=== PATIENT | male | born 1985 | race Caucasian/White ===

== ENCOUNTER 2020-11-04 09:53 | Emergency (ER) | payer MEDICAID ==
[~2020-11-04] VITALS: Ht 177.8 cm; Wt 86.0 kg
[2020-11-04] MEDS ORDERED: LIDOCAINE HCL 1% 20ML VIAL (Pyxis) INJ INFIL ONE (10:15)
[2020-11-04] MEDS ORDERED: TETANUS, DIPHTHERIA, PERTUSSIS VAC/PF 0.5ML (>7YR OLD) IM ONE (10:15)
[2020-11-04] MEDS ORDERED: CEFTRIAXONE SODIUM 1 G/VIAL IM ONE (10:15)
[2020-11-04] MEDS ORDERED: CEPH500T MT (11:06)
[2020-11-04] MEDS ORDERED: IBUP-2030 MT (11:06)
[2020-11-04] MEDS ORDERED: DOXY100T2 MT (11:06)
[2020-11-04 11:46] VITALS: BP 123/81
== END 2020-11-04 11:47 | disposition home or self-care (01) ==
LOC: ER 09:53
DX: T63.511A Toxic effect of contact with stingray, accidental (unintentional), initial encounter (principal); L03.115 Cellulitis of right lower limb; Y93.89 Activity, other specified; Y92.832 Beach as the place of occurrence of the external cause
CPT/HCPCS: 73630; 90471; 90715; 96372; 99284; J0696; J3490

== ENCOUNTER 2022-07-07 12:47 | Emergency (ER) | payer MEDICAID ==
[~2022-07-07] VITALS: Ht 177.8 cm; Wt 88.0 kg
[~2022-07-07 12:47] MED LIST: CEPH500T MT; DOXY100T2 MT; IBUP-2030 MT
[2022-07-07 14:05] LABS: BASOPHILS % 0.1 % (0.0-2.0); EOSINOPHILS % 0.3 % (0.0-5.0); HEMATOCRIT. 43.7 % (42.0-52.0); HEMOGLOBIN. 15.4 g/dL (14.0-18.0); LYMPHOCYTES % 11.3 % (20.0-50.0); MEAN CORPUSCULAR HEMOGLOBIN 29.9 pg (28.0-32.0); MEAN PLATELET VOLUME 7.7 fl (7.4-10.4); MONOCYTES % 7.1 % (2.0-8.0); NEUTROPHILS % 81.2 % (40.0-76.0); PLATELET 298 x1000/uL (130-400); RED BLOOD CELL COUNT 5.14 mill/uL (4.7-6.1); RED CELL DISTRIBUTION WIDTH 13.5 % (11.6-14.6)
[2022-07-07 14:14] LABS: CHLORIDE 107 mEq/L (98-107)
[2022-07-07 14:21] LABS: ETHANOL BLOOD < 10 mg/dL
[2022-07-07] MEDS ORDERED: ONDANSETRON HCL 4MG/2ML INJ IV STA (14:36)
[2022-07-07] MEDS ORDERED: FAMOTIDINE 20MG/2ML VIAL IV STA (14:36)
[2022-07-07] MEDS ORDERED: SODIUM CHLORIDE 0.9% 1,000 ML IV ONE (14:45)
[2022-07-07] MEDS ORDERED: LOPERAMIDE HCL 2MG CAPSULE PO ONE (15:45)
[2022-07-07 15:57] LABS: CLARITY URINE CLEAR (CLEAR); COLOR URINE YELLOW (YELLOW); KETONES URINE NEGATIVE (NEGATIVE); LEUKOCYTE ESTERASE URINE NEGATIVE (NEGATIVE); NITRITE URINE NEGATIVE (NEGATIVE); OCCULT BLOOD URINE NEGATIVE (NEGATIVE); PH URINE 5.5 (4.5-8.0); PROTEIN URINE NEGATIVE (NEGATIVE); SPECIFIC GRAVITY URINE 1.012 (1.005-1.030); UROBILINOGEN URINE 0.2 E.U./dL (0.2-1.0)
[2022-07-07 17:06] VITALS: BP 109/71
[2022-07-07] MEDS ORDERED: ONDA4TAB11 PO (17:14)
[2022-07-07] MEDS ORDERED: LOPE2TAB24 MT (17:14)
== END 2022-07-07 18:03 | disposition home or self-care (01) ==
LOC: ER 12:47
DX: R10.13 Epigastric pain (principal); R11.0 Nausea; R19.7 Diarrhea, unspecified
CPT/HCPCS: 36415; 74176; 80053; 80320; 81003; 83690; 85025; 96374; 96375; 99285; J2405; J3490; J7030; Z7610; G0480

== ENCOUNTER 2024-04-25 14:19 | Emergency (ER) | payer MEDICAID ==
[~2024-04-25] VITALS: Ht 177.8 cm; Wt 86.1 kg
[~2024-04-25 14:19] MED LIST changes: +LOPE2TAB24 MT; +ONDA-239 PO
[2024-04-25 14:26] VITALS: O2SAT 98
[2024-04-25] MEDS: KETOROLAC 30MG/ML VIAL IM STA (18:50)
[2024-04-25 19:30] LABS: INFLUENZA TYPE A Presumptive Negative (Pres. Neg.)
[2024-04-25 19:31] LABS: INFLUENZA TYPE B Presumptive Negative (Pres. Neg.)
[2024-04-25] MEDS: CEFTRIAXONE SODIUM 1G VIAL IM ONE (19:51)
[2024-04-25] MEDS: LIDOCAINE HCL/PF 1% 10 MG/ML 5ML VIAL INFIL ONE (19:51)
[2024-04-25] MEDS ORDERED: NAPR-681 MT (19:57)
[2024-04-25] MEDS ORDERED: AMOX1TAB16 MT (19:57)
[2024-04-25 20:12] VITALS: BP 126/90; PULSE 90; RESP 16; TEMP 37.3; O2SAT 98
== END 2024-04-25 20:13 | disposition home or self-care (01) ==
LOC: ER 14:19
DX: J02.9 Acute pharyngitis, unspecified (principal); R59.0 Localized enlarged lymph nodes; I10 Essential (primary) hypertension; Z79.899 Other long term (current) drug therapy
CPT/HCPCS: 87430; 87070; 87804 ×2; 71045; 96372; 99284; J0696; J1885; Z7610 ×2